=== PATIENT | female | born 1965 | race Two or more races ===

== ENCOUNTER 2022-07-12 11:14 | Outpatient (CLI) | payer OTHER ==
--- NOTE | 2022-07-12 19:48 | Ultrasound Report ---
PROCEDURE: Abdomen Limited INDICATIONS: RUQ PAIN TECHNIQUE: Real-time focused scanning was performed of the abdomen, with image documentation. COMPARISON: None. FINDINGS: Cholecystectomy. Liver normal. No intrahepatic or extra hepatic biliary ductal dilatation. Pancreas and right kidney are unremarkable. IMPRESSION: Cholecystectomy. Normal exam otherwise. Reviewed by: Luis Alfredo Hernández MD on 07/12/2022 7:47 PM PDT Approved by: Luis Alfredo Hernández MD on 07/12/2022 7:47 PM PDT Station ID: [id number]
== END 2022-07-12 11:15 | disposition home or self-care (01) ==
LOC: DI 11:14
PROVIDERS: ATTEND Physician Assistant
DX: R10.11 Right upper quadrant pain (principal); Z90.49 Acquired absence of other specified parts of digestive tract